=== PATIENT | male | born 1980 | race Caucasian/White ===

== ENCOUNTER 2017-06-16 08:34 | Emergency (ER) | payer MEDICAID ==
[2017-06-16] MEDS ORDERED: Morphine INJ* 2 MG/ML 1 ML CARPUJECT IV ONE ×2 (09:43→10:39)
[2017-06-16] MEDS ORDERED: Diazepam SYRINGE* 5 MG/ML 2 ML SYRINGE (10 MG total) IV ONE ×2 (09:44→09:56)
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
[2017-06-16] MEDS ORDERED: Diazepam INJ (NF) 5 MG/ML 10 ML VIAL (50 MG TOTAL) IV ONE (10:00)
[2017-06-16] MEDS ORDERED: Dexamethasone IV* 4 MG/ML 1 ML (4 MG) IV SLOW PU ONE (10:40)
[2017-06-16] MEDS ORDERED: Lidocaine PATCH 5%* 1 PATCH ONE ×2 (10:43)
--- NOTE | 2017-06-16 10:49 | RAD ---
Indication: Low back pain, bilateral lower extremity paresthesias. CT of the lumbar spine was obtained in the axial plane. Sagittal and coronal reconstructed images were obtained. The vertebral bodies appear normal in height. No evidence of fracture is noted. Spinal canal appears to be intact. Evaluation of the soft tissue demonstrates no focal protrusion. All the intervertebral foramen appear patent. impression: No fracture of the lumbar spine is noted. No focal protrusion is identified. The intervertebral foramen appear patent.
[2017-06-16] MEDS ORDERED: Lidocaine PATCH 5%* 1 PATCH TRANSDERM SCH (11:00)
[2017-06-16] MEDS ORDERED: Ketorolac INJ* 30 MG/ML 1 ML VIAL IV PUSH ONE (11:05)
[2017-06-16] MEDS ORDERED: HYDROmorphone INJ* 2 MG/ML CARPUJECT SYRINGE IV SLOW PU ONE (11:42)
[2017-06-16] MEDS ORDERED: HYDROmorphone INJ* 1 MG/ML CARPUJECT SYRINGE ONE ×2 (11:46)
[2017-06-16 12:13] VITALS: BP 132/86
[2017-06-16] MEDS ORDERED: Lidocaine Patch REMOVE* 1 NOTE MISC SCH (21:00)
[2017-06-17] MEDS ORDERED: Diazepam INJ (NF) 5 MG/ML 10 ML VIAL (50 MG TOTAL) IV ONE (09:00)
== END 2017-06-16 12:10 | disposition home or self-care (01) ==
LOC: ED 08:34
DX: S39.012A Strain of muscle, fascia and tendon of lower back, initial encounter (principal); X58.XXXA Exposure to other specified factors, initial encounter; Y92.9 Unspecified place or not applicable; M54.16 Radiculopathy, lumbar region; F17.210 Nicotine dependence, cigarettes, uncomplicated
CPT/HCPCS: 72131; 96374; 96375; 96376; 99283; A9270-GY; J1100; J1170; J1885; J2270; J3360

== ENCOUNTER 2017-12-06 14:56 | Emergency (ER) | payer MEDICAID ==
[2017-12-06 15:12] VITALS: BP 129/94
== END 2017-12-06 15:20 | disposition left against medical advice (07) ==
LOC: ED 14:56
DX: M54.9 Dorsalgia, unspecified (principal); Z53.21 Procedure and treatment not carried out due to patient leaving prior to being seen by health care provider

== ENCOUNTER 2017-12-06 15:38 | Emergency (ER) | payer MEDICAID ==
[2017-12-06 16:11] VITALS: BP 140/90
[2017-12-06] MEDS ORDERED: Carisoprodol TAB* 350 MG PO ONE (16:37)
--- NOTE | 2017-12-06 16:53 | UC ---
Back Pain HPI - HPI Summary HPI Summary: patient woke up this morning unable to straighten up, he is having numbness and tingling down the right fot, the right leg feels cold to him. hisotry of SI joint pain and episode of acute back pain a few months ago. - History of Current Complaint Chief Complaint: UCBackPain Stated Complaint: BACK PAIN Time Seen by Provider: 12/06/17 16:17 Hx Obtained From: Patient Onset/Duration: Sudden Onset, Lasting Hours Timing: Lasting Hours Severity Initially: Severe Severity Currently: Severe Pain Intensity: 8 - Allergies/Home Medications Allergies/Adverse Reactions: Allergies Allergy/AdvReac Type Severity Reaction Status Date / Time No Known Allergies Allergy Verified 12/06/17 16:11 PMH/Surg Hx/FS Hx/Imm Hx Previously Healthy: Yes - Surgical History Surgical History: None Surgery Procedure, Year, and Place: n/a - Family History Known Family History: Positive: Cardiac Disease, Hypertension - Social History Alcohol Use: None Substance Use Type: None Smoking Status (MU): Heavy Every Day Tobacco Smoker Type: Cigarettes Amount Used/How Often: 1/2 -3/4 ppd Length of Time of Smoking/Using Tobacco: 10 years Have You Smoked in the Last Year: Yes - Immunization History Most Recent Influenza Vaccination: Not within the year Most Recent Tetanus Shot: 09/21/13 Most Recent Pneumonia Vaccination: unk Review of Systems Constitutional: Negative Skin: Negative Eyes: Negative ENT: Negative Respiratory: Negative Cardiovascular: Negative Gastrointestinal: Negative Genitourinary: Negative Motor: Negative Neurovascular: Negative Musculoskeletal: Arthralgia, Decreased ROM, Myalgia Neurological: Negative Psychological: Negative Is Patient Immunocompromised?: No All Other Systems Reviewed And Are Negative: Yes Physical Exam Triage Information Reviewed: Yes Appearance: Well-Appearing, Well-Nourished, Pain Distress Vital Signs: Initial Vital Signs Temp 98.6 F 12/06/17 16:08 Pulse 93 12/06/17 16:08 Resp 18 12/06/17 16:08 BP 140/90 12/06/17 16:08 Pulse Ox 98 12/06/17 16:08 Vital Signs Reviewed: Yes Eye Exam: Normal ENT Exam: Normal Dental Exam: Normal Neck exam: Normal Respiratory Exam: Normal Respiratory: Positive: Chest non-tender, Lungs clear, Normal breath sounds Cardiovascular Exam: Normal Cardiovascular: Positive: RRR, No Murmur, Pulses Normal Abdominal Exam: Normal Abdomen Description: Positive: Nontender, No Organomegaly, Soft Bowel Sounds: Positive: Present Musculoskeletal: Positive: No Edema, Strength Limited @ - in right leg, ROM Limited @ - lumbar movment and right hip, Other: - palpation tender over bilateral SI joint ans the spinus processes of the lumbar spine Neurological Exam: Normal Neurological: Positive: Alert Psychological Exam: Normal Skin Exam: Normal Back Pain Course/Dx - Course Course Of Treatment: hx obtained, exam performed, meds reviewed, muscle relaxor given and xray obtained no change since last low back xray. muscle relaxor given. educated on approriate stretches and strengthening for relief of SI joint pain. - Differential Dx/Diagnosis Differential Diagnosis/HQI/PQRI: Cauda Equina Syndrome, Herniated Disc, Strain, Sprain Provider Diagnoses: si joint dysfunction. lumbar radicuopathy Discharge - Sign-Out/Discharge Documenting (check all that apply): Patient Departure - Discharge Plan Condition: Stable Disposition: HOME Prescriptions: Cyclobenzaprine TAB* [Flexeril 10 MG TAB*] 10 mg PO TID PRN #21 tab PRN Reason: Spasms predniSONE [Prednisone 20 MG TAB] 40 mg PO DAILY #14 tablet Patient Education Materials: Sacroiliitis (ED) Referrals: No Primary Care Phys,NOPCP [Primary Care Provider] - Oleksandr Adams [Physical Therapist] - Additional Instructions: 1. use the prednisone and the flexeril for pain , inflammation and spasm. 2. 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 3. you need to rest, heat and stretch for the next few days. Per institutional requirements, I have reviewed the chart, however, I was not consulted specifically or made aware of this patient by the above midlevel provider. I did not personally evaluate, interact with , or disposition this patient. - Billing Disposition and Condition Condition: STABLE Disposition: Home
--- NOTE | 2017-12-06 16:59 | RAD ---
INDICATION: Low back pain with radiation and numbness of the right leg. COMPARISON: Correlation is made with prior CT of the lumbar spine from June 16, 2017. TECHNIQUE: 5 views of the lumbar spine were obtained including lateral, oblique, AP and a coned-down lateral view of the lumbar sacral junction. FINDINGS: The vertebra are in normal alignment. No fracture is seen. There is spina bifida occulta at the S1 level. There is mild disc space narrowing at the L4-L5 and L5-S1 levels which appears unchanged from the prior CT study. IMPRESSION: MILD DISC SPACE NARROWING IN THE LOWER LUMBAR SPINE, UNCHANGED FROM THE PRIOR STUDY.
== END 2017-12-06 17:29 | disposition home or self-care (01) ==
LOC: UCEAST 15:38
DX: M53.3 Sacrococcygeal disorders, not elsewhere classified (principal); M54.16 Radiculopathy, lumbar region; Z82.49 Family history of ischemic heart disease and other diseases of the circulatory system; F17.210 Nicotine dependence, cigarettes, uncomplicated
CPT/HCPCS: 72110; 99212; A9270-GY; G0463